=== PATIENT | female | born 1990 | race Caucasian/White ===

== ENCOUNTER 2019-10-26 03:47 | Emergency (ER) | payer MEDICAID, OTHER ==
[~2019-10-26] VITALS: Ht 170.2 cm; Wt 63.5 kg
[2019-10-26 03:47] VITALS: BP 113/69
[~2019-10-26 03:47] MED LIST: CITA10TA4 PO
--- NOTE | 2019-10-26 04:00 | PHYS DOC ---
Past Medical History Past Medical History: Depression Past Medical History History of present illness limited due to agitation. Past Surgical History: Tonsillectomy, Other Additional Past Surgical Histo: D&C Past Surgical History History of present illness limited due to agitation. Smoking: Cigarettes Alcohol Use: Heavy Drug Use: Marijuana Social History History of present illness limited due to agitation. Adult General Chief Complaint Chief Complaint: Anxiety HPI HPI Patient is a 29-year-old female that is presenting to the emergency department via EMS with agitation. EMS states that they were called by the patient because she woke up with racing thoughts and she was anxious. Upon interview the patient admits to alcohol and marijuana use. Patient is agitated and inconsolable. Limited response to questions because of her agitated state. History of present illness limited due to agitation. Review of Systems Review of Systems Review of systems limited due to agitation Current Medications Current Medications Current Medications Medications (Trade) Dose Ordered Sig/Da Start Time Stop Time Status Last Admin Dose Admin Lorazepam (Ativan Inj) 1 mg 1X ONCE 10/26/19 04:30 10/26/19 04:31 DC 10/26/19 04:00 1 MG Allergies Allergies Allergies Coded Allergies Type Severity Reaction Last Updated Verified iodine Allergy Intermediate Hives 10/26/19 No prednisone Allergy Mild HEADACHE 10/26/19 No Physical Exam Physical Exam Constitutional: Well developed, well nourished, agitated HENT: Normocephalic, atraumatic, oropharynx moist Eyes: PERRL, EOMI, conjunctiva normal, no discharge Neck: Normal range of motion, no tenderness, supple Cardiovascular: Heart rate normal, regular rhythm Lungs & Thorax: Bilateral breath sounds clear to auscultation, no wheezing Abdomen: Soft, no tenderness Skin: Warm, dry, no erythema, no rash Extremities: No tenderness, ROM intact, no edema Neurologic: Alert and oriented X 3, no focal deficits noted Psychologic: Anxious, visibly intoxicated Current Patient Data Vital Signs Vital Signs Date Time Temp Pulse Resp B/P (MAP) Pulse Ox O2 Delivery O2 Flow Rate FiO2 10/26/19 03:47 98.8 92 37 113/69 (84) 99 Room Air 98.8 Lab Values Laboratory Tests Test 10/26/19 04:00 White Blood Count 9.4 x10^3/uL (4.0-11.0) Red Blood Count 4.78 x10^6/uL (3.50-5.40) Hemoglobin 14.6 g/dL (12.0-15.5) Hematocrit 43.1 % (36.0-47.0) Mean Corpuscular Volume 90 fL (79-100) Mean Corpuscular Hemoglobin 31 pg (25-35) Mean Corpuscular Hemoglobin Concent 34 g/dL (31-37) Red Cell Distribution Width 12.7 % (11.5-14.5) Platelet Count 184 x10^3/uL (140-400) Neutrophils (%) (Auto) 73 % (31-73) Lymphocytes (%) (Auto) 21 % (24-48) L Monocytes (%) (Auto) 5 % (0-9) Eosinophils (%) (Auto) 1 % (0-3) Basophils (%) (Auto) 0 % (0-3) Neutrophils # (Auto) 6.8 x10^3/uL (1.8-7.7) Lymphocytes # (Auto) 2.0 x10^3/uL (1.0-4.8) Monocytes # (Auto) 0.5 x10^3/uL (0.0-1.1) Eosinophils # (Auto) 0.0 x10^3/uL (0.0-0.7) Basophils # (Auto) 0.0 x10^3/uL (0.0-0.2) Sodium Level 145 mmol/L (136-145) Potassium Level 3.0 mmol/L (3.5-5.1) L Chloride Level 108 mmol/L (98-107) H Carbon Dioxide Level 23 mmol/L (21-32) Anion Gap 14 (6-14) Blood Urea Nitrogen 9 mg/dL (7-20) Creatinine 0.7 mg/dL (0.6-1.0) Estimated GFR (Cockcroft-Gault) 97.6 BUN/Creatinine Ratio 13 (6-20) Glucose Level 106 mg/dL (70-99) H Calcium Level 8.5 mg/dL (8.5-10.1) Total Bilirubin 0.3 mg/dL (0.2-1.0) Aspartate Amino Transferase (AST) 21 U/L (15-37) Alanine Aminotransferase (ALT) 11 U/L (14-59) L Alkaline Phosphatase 79 U/L (46-116) Creatine Kinase 122 U/L (26-192) Creatine Kinase MB (Mass) 1.0 ng/mL (0.0-3.6) Creatine Kinase MB Relative Index 0.8 % (0-4) Troponin I Quantitative < 0.017 ng/mL (0.000-0.055) Total Protein 7.4 g/dL (6.4-8.2) Albumin 4.1 g/dL (3.4-5.0) Albumin/Globulin Ratio 1.2 (1.0-1.7) Lipase 144 U/L (73-393) Ethyl Alcohol Level 225 mg/dL (0-10) H Laboratory Tests 10/26/19 04:00 Laboratory Tests 10/26/19 04:00 EKG EKG [] Radiology/Procedures Radiology/Procedures [] Course & Med Decision Making Course & Med Decision Making Pertinent Labs and Imaging studies reviewed. (See chart for details) Patient is a 29-year-old female presenting to the emergency department via EMS for agitation. Patient was seen and evaluated at bedside. Patient hyperventilating. Ativan, fluids, labs ordered. After administration of the Ativan the patient became more coherent and signed out AGAINST MEDICAL ADVICE. Patient acknowledges understanding and risks of leaving against medical advice including permanent disability and/or . Josesito orourke also advised of risks of AMA and signed form. Dragon Disclaimer Dragon Disclaimer This electronic medical record was generated, in whole or in part, using a voice recognition dictation system. Departure Departure Impression: Primary Impression: Anxiety Additional Impressions: Left against medical advice Alcohol intoxication Disposition: AGAINST MEDICAL ADVICE Condition: GUARDED Referrals: Dudley MALLORY MD (PCP) Patient Instructions: Anxiety and Panic Attacks, [id number], Discharge Against Medical Advice Problem Qualifiers SEVERO HUTCHINSON DO Oct 26, 2019 04:00
[2019-10-26 04:27] LABS: BASO % 0 % (0-3); EOS % 1 % (0-3); HEMATOCRIT 43.1 % (36.0-47.0); HEMOGLOBIN 14.6 g/dL (12.0-15.5); LYMPH % 21 % (24-48); MEAN CORPUSCULAR HEMOGLOBIN 31 pg (25-35); MEAN CORPUSCULAR HGB CONC 34 g/dL (31-37); MEAN CORPUSCULAR VOLUME 90 fL (79-100); MONO # 0.5 x10^3/uL (0.0-1.1); MONO % 5 % (0-9); NEUT # 6.8 x10^3/uL (1.8-7.7); NEUT % 73 % (31-73); PLATELET COUNT 184 x10^3/uL (140-400); RED BLOOD COUNT 4.78 x10^6/uL (3.50-5.40); RED CELL DISTRIBUTION WIDTH 12.7 % (11.5-14.5); WHITE BLOOD COUNT 9.4 x10^3/uL (4.0-11.0)
[2019-10-26 04:42] LABS: CALCIUM 8.5 mg/dL (8.5-10.1); CREATININE 0.7 mg/dL (0.6-1.0); GFR 97.6
[2019-10-26 04:48] LABS: TOTAL BILIRUBIN 0.3 mg/dL (0.2-1.0); TOTAL PROTEIN 7.4 g/dL (6.4-8.2)
[2019-10-26 05:13] LABS: ALBUMIN 4.1 g/dL (3.4-5.0); ALBUMIN/GLOBULIN RATIO 1.2 (1.0-1.7)
== END 2019-10-26 04:10 | disposition left against medical advice (07) ==
LOC: ER 03:47
DX: F41.9 Anxiety disorder, unspecified (principal); F10.229 Alcohol dependence with intoxication, unspecified; Y90.7 Blood alcohol level of 200-239 mg/100 ml; F17.210 Nicotine dependence, cigarettes, uncomplicated
CPT/HCPCS: 36415; 80053; 82553; 83690; 84484; 85025; 96374; 99284; G0480; J2060; 99285-25

== ENCOUNTER 2020-08-03 08:29 | Emergency (ER) | payer MEDICAID ==
[~2020-08-03] VITALS: Ht 170.2 cm; Wt 66.0 kg
[2020-08-03 08:44] VITALS: BP 128/76
[2020-08-03] MEDS ORDERED: IV NORMAL SALINE 1000ML BAG 1,000 ML IV ONE (09:15)
[2020-08-03 09:29] LABS: BASO % 1 % (0-3); EOS # 0.2 x10^3/uL (0.0-0.7); EOS % 4 % (0-3); HEMOGLOBIN 14.8 g/dL (12.0-15.5); LYMPH # 2.3 x10^3/uL (1.0-4.8); LYMPH % 45 % (24-48); MEAN CORPUSCULAR HEMOGLOBIN 31 pg (25-35); MEAN CORPUSCULAR HGB CONC 35 g/dL (31-37); MEAN CORPUSCULAR VOLUME 89 fL (79-100); MONO # 0.4 x10^3/uL (0.0-1.1); MONO % 7 % (0-9); NEUT # 2.3 x10^3/uL (1.8-7.7); NEUT % 44 % (31-73); PLATELET COUNT 220 x10^3/uL (140-400); RED BLOOD COUNT 4.74 x10^6/uL (3.50-5.40); RED CELL DISTRIBUTION WIDTH 13.1 % (11.5-14.5); WHITE BLOOD COUNT 5.1 x10^3/uL (4.0-11.0)
--- NOTE | 2020-08-03 09:29 | PHYS DOC ---
Past Medical History Past Medical History: Anxiety, Asthma, Bronchitis, Depression Past Surgical History: Tonsillectomy, Other Additional Past Surgical Histo: D&C Smoking Status: Current Every Day Smoker Alcohol Use: Heavy Drug Use: Marijuana General Adult EDM: Chief Complaint: FEVER HPI: HPI: Patient is a 30-year-old female who presents to the emergency room complaining of nausea and vomiting that started last night. Patient states that last week she was started on clindamycin by her [employer]. She states she had some vomiting on Monday so she quit taking it because she believes that it is a allergy. She states she knows her body and she has not been to put her body through that. Patient denies any abdominal pain with her nausea and vomiting. She states she has been having "a fever "since Monday. She states that it started around Monday and her highest fever has been 99.0. She has had a cough with this as we ll she denies any other URI symptoms. Review of Systems: Review of Systems: General: Denies fever, chills, sweats, fatigue Eyes: Denies drainage, blurred vision, eye redness HENT: Denies rhinorrhea, sore throat, earache Respiratory: Denies cough, shortness of breath, wheezing Cardiac: Denies edema, palpitations, chest pain GI: Denies abdominal pain.reports nausea, vomiting MSK: Denies back pain, neck pain Skin: Denies rash, jaundice Neuro: Denies headache, dizziness Psychiatric: Denies SI/HI Heart Score: Risk Factors: Risk Factors: DM, Current or recent (<one month) smoker, HTN, HLP, family history of CAD, obesity. Risk Scores: Score 0 - 3: 2.5% MACE over next 6 weeks - Discharge Home Score 4 - 6: 20.3% MACE over next 6 weeks - Admit for Clinical Observation Score 7 - 10: 72.7% MACE over next 6 weeks - Early Invasive Strategies Current Medications: Current Medications Medications (Trade) Dose Ordered Sig/Da Start Time Stop Time Status Last Admin Dose Admin Sodium Chloride 1,000 ml @ 1,000 mls/hr 1X ONCE 08/03/20 09:15 08/03/20 10:14 08/03/20 09:11 1,000 MLS/HR Allergies: Allergies: Allergies Coded Allergies Type Severity Reaction Last Updated Verified iodine Allergy Intermediate Hives 10/26/19 No prednisone Allergy Mild HEADACHE 10/26/19 No Physical Exam: PE: General: Awake, alert, NAD. Well Nourished, well hydrated. Cooperative HEENT: Atraumatic, EOMI, PERRL, airway patent, moist oral mucosa Neck: Supple, trachea midline Respiratory: CTA bilaterally, normal effort, no wheezing/crackles CV: RRR, no murmur, cap refill <2 GI: Soft, nondistended, nontender, no masses MSK: No obvious deformities Skin: Warm, dry, intact Neuro: A&O x3, speech NL, sensory and motor grossly intact, no focal deficits Psych: Agitation, anxious, not suicidal or homicidal Current Patient Data: Vital Signs: Vital Signs Date Time Temp Pulse Resp B/P (MAP) Pulse Ox O2 Delivery O2 Flow Rate FiO2 08/03/20 08:44 99.2 73 18 128/76 (93) 98 Room Air 99.2 EKG: EKG: [] Radiology/Procedures: Radiology/Procedures: [] Course & Med Decision Making: Course & Med Decision Making Pertinent Labs and Imaging studies reviewed. (See chart for details) Patient is a 30-year-old previously healthy female who presents to the emergency room complaining of nausea and vomiting. Patient has not had a true fever during this time period. She also has had a cough. This raises concerns for possible coronavirus 19. Work-up will be ordered to evaluate patient for coronavirus. Patient has a nontender abdomen and does not appear to have any surgical causes for her nausea and vomiting. Differential diagnosis includes novel coronavirus 19, gastroenteritis, gastritis, cyclic vomiting. Patient is an every day marijuana smoker. Of note patient did become repetitively upset while in the emergency room. She was upset that she had to change into a gown, then she became upset that the nursing staff had to do an EKG and lift her gown up. Patient stated "this is why I do not come to hospitals." Patient's lab work appears unremarkable. She does not have any vomiting while in the emergency room. She refused to give urine. Patient at this time would like to leave AMA. Patient has requested to leave AGAINST MEDICAL ADVICE. I have discussed the benefits of staying for a full work up and the patient would like to leave. I discussed the risks of leaving including but not limited to , permenant end-organ damage, worsening of condition and patient stated understanding. Patient signed out against medical advice. Dragon Disclaimer: Dragon Disclaimer: This electronic medical record was generated, in whole or in part, using a voice recognition dictation system. Departure Departure Impression: Primary Impression: Vomiting Additional Impressions: Left against medical advice Anxiety Disposition: 07 AGAINST MEDICAL ADVICE Condition: STABLE Referrals: NO PCP (PCP) Justicifation of Admission Dx: Justifications for Admission: Justification of Admission Dx: N/A SONIA PHAN MD Aug 03, 2020 09:29
--- NOTE | 2020-08-03 09:30 | RAD ---
Examination: CHEST AP ONLY History: Reason: cough, covid? (artifact on CXR due to pt unable to remove locket necklace) / Spl. Instructions: / History: Comparison: None. Findings: AP portable upright frontal view of the chest was obtained. The cardiomediastinal silhouette is normal. Lungs are clear. There is no pneumothorax. No pleural effusion is appreciated. No acute bone abnormality. IMPRESSION: No acute cardiopulmonary process. Electronically signed by: Kaleb Gregorio MD (08/03/2020 9:28 AM) [id number]
[2020-08-03 09:33] LABS: CALCIUM 9.6 mg/dL (8.5-10.1); CREATININE 0.8 mg/dL (0.6-1.0); GFR 83.1; POTASSIUM 3.4 mmol/L (3.5-5.1)
[2020-08-03 09:40] LABS: ALBUMIN 4.1 g/dL (3.4-5.0); ALBUMIN/GLOBULIN RATIO 1.1 (1.0-1.7); TOTAL BILIRUBIN 0.9 mg/dL (0.2-1.0); TOTAL PROTEIN 7.9 g/dL (6.4-8.2)
--- NOTE | 2020-08-03 20:01 | EKG ---
[facility] [address] [place] [address] Test Date: 2020-08-03 Test Time: 09:02:02 Pat Name: SHLEBY MORTON Department: Room: Gender: F Improvement Lead: : 1990 Requested By: SONIA PHAN Order Number: [id number] Reading MD: Vinny Pickens MD Measurements Intervals [place] Rate: 80 P: 62 NM: 140 QRS: 48 QRSD: 76 T: 27 QT: 384 QTc: 447 Interpretive Statements SINUS RHYTHM Electronically Signed On 08-04-2020 12:37:12 CDT by Vinny Pickens MD
== END 2020-08-03 11:00 | disposition left against medical advice (07) ==
LOC: ER 08:29
DX: R11.2 Nausea with vomiting, unspecified (principal); R50.9 Fever, unspecified; R05 Cough; F41.9 Anxiety disorder, unspecified; J45.909 Unspecified asthma, uncomplicated; F32.9 Major depressive disorder, single episode, unspecified; F17.200 Nicotine dependence, unspecified, uncomplicated; F12.90 Cannabis use, unspecified, uncomplicated; F10.10 Alcohol abuse, uncomplicated; Z90.89 Acquired absence of other organs; Z98.890 Other specified postprocedural states
CPT/HCPCS: 36415; 71045; 80053; 82550; 83615; 83880; 84484; 85025; 85379; 86140; 93005; 96360; 99285; J7030